=== PATIENT | female | born 1985 | race Caucasian/White ===

== ENCOUNTER 2021-03-26 21:38 | Emergency (ER) | payer MEDICAID ==
[~2021-03-26] VITALS: Ht 165.1 cm; Wt 83.0 kg
[2021-03-26] MEDS ORDERED: HYDROCODONE/ACETAMINOPHEN 5/325MG TABLET PO ONE (22:45)
[2021-03-27] MEDS ORDERED: ACETAMINOPHEN 325MG TABLET PO ONE (01:15)
[2021-03-27] MEDS ORDERED: TOPUD MT (01:32)
[2021-03-27 01:39] VITALS: BP 136/88
== END 2021-03-27 01:41 | disposition home or self-care (01) ==
LOC: ER 21:38
DX: S09.8XXA Other specified injuries of head, initial encounter (principal); S80.02XA Contusion of left knee, initial encounter; V03.90XA Pedestrian on foot injured in collision with car, pick-up truck or van, unspecified whether traffic or nontraffic accident, initial encounter; Y93.01 Activity, walking, marching and hiking; Y92.9 Unspecified place or not applicable; Z88.6 Allergy status to analgesic agent
CPT/HCPCS: 73560; 99284